=== PATIENT | female | born 1975 | race African-American/Black ===

== ENCOUNTER 2017-05-06 14:35 | Inpatient (IN) | payer OTHER ==
[~2017-05-06] VITALS: Ht 157.5 cm; Wt 131.5 kg
--- NOTE | ~2017-05-06 | EKG ---
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
[2017-05-06 14:36] VITALS: BP 128/69
[2017-05-06] MEDS ORDERED: ZESTORETIC 20-1 EAC2 PO (14:47)
[2017-05-06] MEDS ORDERED: VITAMIN D1000 UNI1 PO (14:47)
[2017-05-06] MEDS ORDERED: LOPRESSOR25 PO (14:47)
[2017-05-06] MEDS ORDERED: AMARYL2 MG PO (14:48)
[2017-05-06] MEDS ORDERED: METFORMIN HCL500 MG PO (14:48)
[2017-05-06] MEDS ORDERED: ZOCOR40 MG PO (14:48)
[2017-05-06 15:31] LABS: ABSOLUTE NEUTROPHILS 4.8 thou/uL (1.4-8.2); BASOPHILS 0.8 % (0.0-2.0); EOSINOPHILS 0.8 % (0.0-3.0); HEMATOCRIT 39.4 % (37.0-47.0); HEMOGLOBIN 13.3 gm/dL (12.0-15.0); LYMPHOCYTES 46.1 % (24.0-44.0); MCH 30.2 pg (26.0-34.0); MCHC 33.7 g/dL (28.0-37.0); MCV 89.5 fL (80.0-100.0); MONOCYTES 7.3 % (1.0-8.0); PLATELET COUNT 391 thou/uL (150-400); RDW 14.1 % (10.5-14.5); WBC 10.6 thou/uL (4.0-11.0)
[2017-05-06 15:33] LABS: URINE BILIRUBIN NEGATIVE (Negative); URINE BLOOD TRACE (Negative); URINE CLARITY CLEAR; URINE COLOR YELLOW; URINE GLUCOSE-RANDOM* NEGATIVE (Negative); URINE KETONES NEGATIVE (Negative); URINE LEUKOCYTES NEGATIVE (Negative); URINE NITRITE NEGATIVE (Negative); URINE PROTEIN (DIPSTICK) NEGATIVE (Negative); URINE UROBILINOGEN 0.2 E.U./dl (0.2-1.0)
[2017-05-06 15:35] LABS: ANION GAP 9 mmol/L (7-16); BUN 12 mg/dL (7-18); CHLORIDE 100 mmol/L (98-107); CO2 29 mmol/L (21-32); CREATININE 0.8 mg/dL (0.6-1.0); GLUCOSE 93 mg/dL (74-106); POTASSIUM 3.8 mmol/L (3.5-5.1); SODIUM 138 mmol/L (136-145)
[2017-05-06 15:44] LABS: ALBUMIN 3.8 g/dL (3.4-5.0); SGOT 21 U/L (15-37); SGPT 37 U/L (30-65); TOTAL BILIRUBIN 0.2 mg/dL (<0.1-1.0); TROPONIN-I < 0.04 ng/mL (<0.06)
[2017-05-06 18:06] VITALS: BP 118/69
[2017-05-06 18:45] VITALS: BP 152/87
[2017-05-06 19:39] VITALS: BP 109/54
[2017-05-07 00:14] VITALS: BP 102/71
[2017-05-07 03:46] VITALS: BP 114/57
[2017-05-07 07:29] VITALS: BP 143/67
[2017-05-07] MEDS ORDERED: CARDIZEM CD 18180 M3 PO (09:20)
[2017-05-07 11:27] VITALS: BP 129/65
[2017-05-07 20:00] VITALS: BP 138/87
[2017-05-08 04:00] VITALS: BP 119/78
[2017-05-08 07:51] VITALS: BP 135/55
[2017-05-08] MEDS ORDERED: ANTIVERT25 MG PO (11:19)
[2017-05-08 12:28] VITALS: BP 140/76
[2017-05-08 14:26] VITALS: BP 140/76
== END 2017-05-08 16:30 | disposition home or self-care (01) | DRG 309 ==
LOC: ER 14:35 → 2N 17:04 → EROBS 17:04 → 2N 18:34
PROVIDERS: Nurse Practitioner
DX: R00.0 Tachycardia, unspecified (principal); Z68.43 Body mass index [BMI] 50.0-59.9, adult; I10 Essential (primary) hypertension; E11.9 Type 2 diabetes mellitus without complications; F17.210 Nicotine dependence, cigarettes, uncomplicated; K76.0 Fatty (change of) liver, not elsewhere classified; E66.9 Obesity, unspecified; Z88.8 Allergy status to other drugs, medicaments and biological substances
CPT/HCPCS: 10081